=== PATIENT | male | born 1965 | race African-American/Black ===

== ENCOUNTER 2019-04-24 08:10 | Inpatient (IN) | payer OTHER ==
[2019-04-24 08:40] VITALS: BMI 20.7
--- NOTE | 2019-04-24 09:24 | HP ---
"CIWA Score Nausea/Vomitin-Mild Nausea/No Vomiting Muscle Tremors: 3 Anxiety: 4-Mod. Anxious/Guarded Agitation: 1-Slight > Activity Paroxysmal Sweats: No Perspiration Orientation: 1-Uncertain about Date Tacttile Disturbances: 0-None Auditory Disturbances: 1-Very Mild Visual Disturbances: 1-Very Mild Sensitivity Headache: 2-Mild CIWA-Ar Total Score: 14 - Admission Criteria OASAS Guidelines: Admission for Medically Managed Detox: Requires at least one of the followin. CIWA greater than 12 2. Seizures within the past 24 hours 3. Delirium tremens within the past 24 hours 4. Hallucinations within the past 24 hours 5. Acute intervention needed for co occurring medical disorder 6. Acute intervention needed for co occurring psychiatric disorder 7. Severe withdrawal that cannot be handled at a lower level of care (continued vomiting, continued diarrhea, abnormal vital signs) requiring intravenous medication and/or fluids 8. Patient presents the following: CIWA greater than 12 Admission Criteria Met: Admission criteria met Admitting History and Physical - Admission History Source: Patient Limitations to Obtaining History: No Limitations - Past Medical History Psych: Yes: Addictions - Smoking History Smoking history: Current every day smoker - Alcohol/Substance Use Hx Alcohol Use: Yes History of Substance Use: reports: Cocaine - Social History Usual Living Arrangement: Yes: Alone ADL: Support Services Admission ROS S - HPI Chief Complaint: I'm at my end, I need help, I can't go on like this Allergies/Adverse Reactions: Allergies Allergy/AdvReac Type Severity Reaction Status Date / Time No Known Allergies Allergy Verified 04/24/19 08:30 History of Present Illness: 53 yo gentleman here for detox from alcohol - also using crack. Patient denies seizures but has had black outs. No recent emergency room visit. Gets HIV care at [facility]. First time here but has been in detox elsewhere several years ago. Patient is on disability (HIV) and lives in [place] - has been homeless for eight years due to his alcohol and drug use. Denies psychiatric problems. States he got out of long-term three months ago - was incarcerated for one year ([facility]). Limping, uses cane but difficulty walking - states has avascular necrosis and needs hip replacement. Patient states he uses [facility] [phone] (not in [email or web address] dictionary) - however when I called they said he had not been there for a year. I also called [facility] pharmacy [phone] - they states he had not picked up his medication since May 2017. EKG with possible ischemia - patient very cold but no c/o chest pain [facility] Search Terms: isaak wahl, 1965 Search Date: 04/24/2019 09:35:37 AM The Drug Utilization Report below displays all of the controlled substance prescriptions, if any, that your patient has filled in the last twelve months. The information displayed on this report is compiled from pharmacy submissions to the Department, and accurately reflects the information as submitted by the pharmacies. This report was requested by: Rozina Wesley | Reference #: [id number] There are no results for the search terms that you entered. Exam Limitations: No Limitations - Ebola screening Have you traveled outside of the country in the last 21 days: No Have you had contact with anyone from an Ebola affected area: No Have you been sick,other than usual withdrawal symptoms: No Do you have a fever: No - Review of Systems Constitutional: Chills, Loss of Appetite, Malaise, Changes in sleep, Weakness, Unintentional Wgt. Loss EENT: reports: No Symptoms Reported Respiratory: reports: No Symptoms reported Cardiac: reports: No Symptoms Reported GI: reports: Nausea, Poor Appetite, Poor Fluid Intake, Indigestion, Abdominal cramping : reports: Frequency Musculoskeletal: reports: Back Pain, Joint Pain (left hip), Muscle Pain Integumentary: reports: Dryness Neuro: reports: Headache, Tremors Endocrine: reports: No Symptoms Reported Hematology: reports: No Symptoms Reported Psychiatric: reports: Judgement Intact, Mood/Affect Appropiate, Orientated x3, Anxious Other Systems: Reviewed and Negative Patient History - Patient Medical History Hx Anemia: No Hx Asthma: No Hx Chronic Obstructive Pulmonary Disease (COPD): No Hx Cancer: No Hx Cardiac Disorders: No Hx Congestive Heart Failure: No Hx Hypertension: No Hx Hypercholesterolemia: No Hx Pacemaker: No HX Cerebrovascular Accident: No Hx Seizures: No Hx Diabetes: No Hx Gastrointestinal Disorders: No Hx Liver Disease: No Hx Genitourinary Disorders: Yes (BPH ) Hx Sexually Transmitted Disorders: No Hx Renal Disease (ESRD): No Hx Thyroid Disease: No Hx Human Immunodeficiency Virus (HIV): Yes (CD4 <200, diagnosed 1994, takes meds ) Hx Hepatitis C: No Hx Depression: No Hx Suicide Attempt: No Hx Bipolar Disorder: No Hx Schizophrenia: No Other Medical History: avascular necrosis left hip; degenerative disc disease - back pain - Patient Surgical History Past Surgical History: No - PPD History Previous Implant?: Yes Documented Results: Negative w/o proof Implanted On Prior R Admission?: No PPD to be Administered?: Yes - Reproductive History Patient is a Female of Child Bearing Age (11 -55 yrs old): No (male) - Smoking Cessation Smoking history: Current every day smoker Have you smoked in the past 12 months: Yes Hx Chewing Tobacco Use: No Initiated information on smoking cessation: Yes 'Breaking Loose' booklet given: 04/24/19 (give on floor) - Substance & Tx. History Hx Alcohol Use: Yes Hx Substance Use: Yes Substance Use Type: Alcohol, Cocaine Hx Substance Use Treatment: Yes (detox) - Substances abused Alcohol Substance route: Oral Frequency: Daily Amount used: 2 pints of vodka Age of first use: 15 Date of last use: 04/23/19 Cocaine Substance route: Smoking Frequency: Daily Amount used: $200-300$ Age of first use: 15 Date of last use: 04/24/19 Admission Physical Exam [facility] - Vital Signs Vital Signs: Vital Signs - 24 hr 04/24/19 08:37 Temperature 98.2 F Pulse Rate 60 Respiratory 16 Rate Blood Pressure 119/66 - Physical General Appearance: Yes: Nourished, Appropriately Dressed, Moderate Distress, Thin, Tremorous, Anxious HEENTM: Yes: EOMI, Hearing grossly Normal, Normocephalic, Normal Voice, Pharynx Normal Respiratory: Yes: Normal Breath Sounds, No Respiratory Distress Neck: Yes: No masses,lesions,Nodules Breast: Yes: Breast Exam Deferred Cardiology: Yes: Regular Rhythm, Regular Rate Abdominal: Yes: Flat, Soft Genitourinary: Yes: Frequency, Nocturia Back: Yes: Decreased Range of Motion, Other (mild kyphosis) Musculoskeletal: Yes: Back pain, Joint Stiffness, Other Extremities: Yes: Tremors, Other (limping) Neurological: Yes: Fully Oriented, Alert, Normal Mood/Affect, Normal Response Integumentary: Yes: Normal Color, Dry, Warm Lymphatic: Yes: Within Normal Limits - Diagnostic (1) Alcohol dependence with withdrawal, uncomplicated Current Visit: Yes Status: Chronic (2) Cocaine dependence Current Visit: Yes Status: Chronic Qualifiers: Substance use status: uncomplicated Qualified Code(s): F14.20 - Cocaine dependence, uncomplicated (3) Avascular necrosis of bone of left hip Current Visit: Yes Status: Chronic (4) Back pain Current Visit: Yes Status: Chronic Qualifiers: Back pain location: low back pain Chronicity: chronic Back pain laterality: bilateral Sciatica presence: without sciatica Qualified Code(s) : M54.5 - Low back pain; G89.29 - Other chronic pain (5) Nicotine dependence Current Visit: Yes Status: Chronic Qualifiers: Nicotine product type: cigarettes Substance use status: uncomplicated Qualified Code(s): F17.210 - Nicotine dependence, cigarettes, uncomplicated (6) AIDS (acquired immunodeficiency syndrome), CD4 <=200 Current Visit: Yes Status: Chronic Cleared for Admission S - Detox or Rehab [facility] Level of Care: Medically Managed Detox Regimen/Protocol: Librium Breathalyzer - Breathalyzer Breathalyzer: 0 Urine Drug Screen - Test Device Lot number: [id number] Expiration date: 02/08/21 - Control Is test valid?: Yes - Results Drug screen NEGATIVE: No Urine drug screen results: CLAUDIA-Cocaine Inpatient Rehab Admission - Rehab Decision to Admit Inpatient rehab admission?: No"
[2019-04-24] MEDS ORDERED: MAG HYDROX/AL HYDROX/SIMETH 30 ML UNIT-DOSE CUP PO PRN (09:46)
[2019-04-24] MEDS ORDERED: hydrOXYzine PAMOATE 25 MG CAPSULE (FP) PO PRN (09:46)
[2019-04-24] MEDS ORDERED: MAGNESIUM CITRATE 300 ML BOTTLE PO PRN (09:46)
[2019-04-24] MEDS ORDERED: MENTHOL/PHENOL 1 EACH UD MM PRN (09:46)
[2019-04-24] MEDS ORDERED: chlordiazePOXIDE HCL 25 MG CAPSULE PO PRN (09:46)
[2019-04-24] MEDS ORDERED: BISMUTH SUBSALICYLATE 524 MG/30 ML UD PO PRN (09:46)
[2019-04-24] MEDS ORDERED: NICOTINE POLACRILEX 4 MG GUM BUC PRN (09:46)
[2019-04-24] MEDS ORDERED: MAGNESIUM HYDROX 2400MG/30ML ORAL SUSPENSION 30 ML CUP PO PRN (09:46)
[2019-04-24] MEDS ORDERED: IBUPROFEN 400 MG TABLET (FP) PO PRN (09:46)
[2019-04-24] MEDS ORDERED: MELATONIN 5 MG TABLETS PO PRN (09:46)
[2019-04-24] MEDS ORDERED: ACETAMINOPHEN 325 MG TABLET (FP) PO PRN ×2 (09:46)
[2019-04-24] MEDS ORDERED: chlordiazePOXIDE HCL 25 MG CAPSULE PO ONE (10:45)
[2019-04-24] MEDS: PRENATAL VITAMINS W/ FOLIC ACID TABLET (FP) PO SCH (11:19)
[2019-04-24] MEDS: chlordiazePOXIDE HCL 25 MG CAPSULE PO SCH ×3 (11:19→22:46)
[2019-04-24] MEDS: SULFAMETHOXAZOLE/TRIMETHOPRIM 800MG/160MG D.S. TABLET PO SCH (11:19)
[2019-04-24 11:37] LABS: HEMATOCRIT 39.6 % (35.4-49); HEMOGLOBIN 13.3 GM/dL (11.7-16.9); MCH 33.6 pg (25.7-33.7); MCHC 33.6 g/dl (32.0-35.9); MEAN PLT VOLUME 9.5 fl (7.5-11.1); PLATELET COUNT 182 K/MM3 (134-434); RBC 3.96 M/mm3 (4.00-5.60); RDW 12.9 % (11.9-15.9); WHITE BLOOD COUNT 2.6 K/mm3 (4.0-10.0)
[2019-04-24 11:49] LABS: ALBUMIN 3.6 g/dl (3.4-5.0); BILIRUBIN,TOTAL 0.2 mg/dL (0.2-1); BLOOD UREA NITROGEN 10.2 mg/dL (7-18); CALCIUM 8.9 mg/dL (8.5-10.1); CREATININE 1.1 mg/dL (0.55-1.3); POTASSIUM 3.9 mmol/L (3.5-5.1)
--- NOTE | 2019-04-24 14:36 | EKG ---
Test Reason : Blood Pressure : / mmHG Vent. Rate : 058 BPM Atrial Rate : 058 BPM P-R Int : 180 ms QRS Dur : 076 ms QT Int : 426 ms P-R-T Axes : 052 000 152 degrees QTc Int : 418 ms SINUS BRADYCARDIA POSSIBLE LEFT ATRIAL ENLARGEMENT LEFT VENTRICULAR HYPERTROPHY T WAVE ABNORMALITY, CONSIDER LATERAL ISCHEMIA ABNORMAL ECG Confirmed by MD KIT, ARIEL ([id number]) on 04/24/2019 2:36:10 PM Referred By: Confirmed By:ARIEL PANTOJA MD
[2019-04-24] MEDS ORDERED: traZODone HCL 50 MG TABLET (FP) PO PRN (22:00)
[2019-04-24] MEDS: THIAMINE HCL 100 MG TABLET (FP) PO SCH (22:46)
[2019-04-24] MEDS: METHOCARBAMOL 500 MG TABLET PO PRN (23:12)
[2019-04-25] MEDS: chlordiazePOXIDE HCL 25 MG CAPSULE PO SCH ×4 (05:47→23:51)
[2019-04-25] MEDS: IBUPROFEN 600 MG TABLET (FP) PO PRN ×2 (05:54→14:54)
[2019-04-25] MEDS: PRENATAL VITAMINS W/ FOLIC ACID TABLET (FP) PO SCH (10:25)
[2019-04-25] MEDS: SULFAMETHOXAZOLE/TRIMETHOPRIM 800MG/160MG D.S. TABLET PO SCH (10:25)
--- NOTE | 2019-04-25 12:24 | PN ---
[facility] CIWA - CIWA Score Nausea/Vomitin-Mild Nausea/No Vomiting Muscle Tremors: 3 Anxiety: 3 Agitation: 2 Paroxysmal Sweats: 2 Orientation: 0-Oriented Tacttile Disturbances: 0-None Auditory Disturbances: 0-None Visual Disturbances: 0-None Headache: 0-None Present CIWA-Ar Total Score: 11 [facility] Progress Note (SOAP) Subjective: Sweating, nausea. Patient stated he has full blown AIDS and was taking descovy, prezista and tivicay [place] out of state and hasn't taken for about a year. Patient instructed to follow up with his PCP/ID Specialist for further evalution and to restart treatment. He's on Bactrim DS for reportedly low CD 4 count. Patient agreed to HIV testing. Objective: 04/25/19 12:24 Last Vital Signs Temp Pulse Resp BP Pulse Ox 97.9 F 58 L 18 122/76 04/25/19 09:05 04/25/19 09:05 04/25/19 09:05 04/25/19 09:05 Laboratory Tests 04/24/19 04/24/19 04/24/19 10:10 10:10 10:10 WBC 2.6 L RBC 3.96 L Hgb 13.3 Hct 39.6 MCV 100.0 H MCH 33.6 MCHC 33.6 RDW 12.9 Plt Count 182 MPV 9.5 Sickle Cell Screen Sodium 141 Potassium 3.9 Chloride 106 Carbon Dioxide 31 Anion Gap 4 L BUN 10.2 Creatinine 1.1 Est GFR (CKD-EPI)AfAm 88.36 Est GFR (CKD-EPI)NonAf 76.24 Random Glucose 88 Calcium 8.9 Total Bilirubin 0.2 AST 27 ALT 28 Alkaline Phosphatase 66 Total Protein 7.0 Albumin 3.6 RPR Titer Nonreactive 04/24/19 10:10 WBC RBC Hgb Hct MCV MCH MCHC RDW Plt Count MPV Sickle Cell Screen Negative Sodium Potassium Chloride Carbon Dioxide Anion Gap BUN Creatinine Est GFR (CKD-EPI)AfAm Est GFR (CKD-EPI)NonAf Random Glucose Calcium Total Bilirubin AST ALT Alkaline Phosphatase Total Protein Albumin RPR Titer Labs reviewed Assessment: 04/25/19 12:24 Withdrawal sxs Has HIV, not on treatment Plan: Continue detox Encouraged PO water intake AIDS: continue Bactrim DS daily, send HIV 4th generation testing, send CD4 count and viral load, send hepatitis A, B, C panel
[2019-04-25] MEDS: METHOCARBAMOL 500 MG TABLET PO PRN (14:54)
[2019-04-25] MEDS: THIAMINE HCL 100 MG TABLET (FP) PO SCH (23:51)
[2019-04-26] MEDS: chlordiazePOXIDE HCL 25 MG CAPSULE PO SCH ×4 (06:24→22:30)
[2019-04-26] MEDS: IBUPROFEN 600 MG TABLET (FP) PO PRN ×2 (06:26→17:16)
[2019-04-26] MEDS: METHOCARBAMOL 500 MG TABLET PO PRN ×2 (06:27→17:16)
--- NOTE | 2019-04-26 10:25 | PN ---
S CIWA - CIWA Score Nausea/Vomitin-Mild Nausea/No Vomiting Muscle Tremors: 2 Anxiety: 2 Agitation: 2 Paroxysmal Sweats: No Perspiration Orientation: 0-Oriented Tacttile Disturbances: 1-Very Mild Itch/Numbness Auditory Disturbances: 0-None Visual Disturbances: 0-None Headache: 1-Very Mild CIWA-Ar Total Score: 9 [facility] Progress Note (SOAP) Subjective: alert,irritable,anxious,interrupted sleep,pain in the body Objective: 04/26/19 10:23 Vital Signs Temperature 98.1 F 04/26/19 08:56 Pulse Rate 61 04/26/19 08:56 Respiratory Rate 16 04/26/19 08:56 Blood Pressure 117/67 04/26/19 08:56 O2 Sat by Pulse Oximetry (%) 04/26/19 10:23 Laboratory Last Values WBC 2.6 K/mm3 (4.0-10.0) L 04/24/19 10:10 RBC 3.96 M/mm3 (4.00-5.60) L 04/24/19 10:10 Hgb 13.3 GM/dL (11.7-16.9) 04/24/19 10:10 Hct 39.6 % (35.4-49) 04/24/19 10:10 MCV 100.0 fl (80-96) H 04/24/19 10:10 MCH 33.6 pg (25.7-33.7) 04/24/19 10:10 MCHC 33.6 g/dl (32.0-35.9) 04/24/19 10:10 RDW 12.9 % (11.9-15.9) 04/24/19 10:10 Plt Count 182 K/MM3 (134-434) 04/24/19 10:10 MPV 9.5 fl (7.5-11.1) 04/24/19 10:10 Sickle Cell Screen Negative (NEGATIVE) 04/24/19 10:10 Sodium 141 mmol/L (136-145) 04/24/19 10:10 Potassium 3.9 mmol/L (3.5-5.1) 04/24/19 10:10 Chloride 106 mmol/L (98-107) 04/24/19 10:10 Carbon Dioxide 31 mmol/L (21-32) 04/24/19 10:10 Anion Gap 4 MMOL/L (8-16) L 04/24/19 10:10 BUN 10.2 mg/dL (7-18) 04/24/19 10:10 Creatinine 1.1 mg/dL (0.55-1.3) 04/24/19 10:10 Est GFR (CKD-EPI)AfAm 88.36 04/24/19 10:10 Est GFR (CKD-EPI)NonAf 76.24 04/24/19 10:10 Random Glucose 88 mg/dL (74-106) 04/24/19 10:10 Calcium 8.9 mg/dL (8.5-10.1) 04/24/19 10:10 Total Bilirubin 0.2 mg/dL (0.2-1) 04/24/19 10:10 AST 27 U/L (15-37) 04/24/19 10:10 ALT 28 U/L (13-61) 04/24/19 10:10 Alkaline Phosphatase 66 U/L (45-117) 04/24/19 10:10 Total Protein 7.0 g/dl (6.4-8.2) 04/24/19 10:10 Albumin 3.6 g/dl (3.4-5.0) 04/24/19 10:10 RPR Titer Nonreactive (NONREACTIVE) 04/24/19 10:10 04/26/19 10:23 leukopenia probably due to aids Assessment: 04/26/19 10:24 withdrawal symptom Plan: contiune detox librium regimen,ensure plus `120 mls po bid
[2019-04-26] MEDS: PRENATAL VITAMINS W/ FOLIC ACID TABLET (FP) PO SCH (10:46)
[2019-04-26] MEDS: SULFAMETHOXAZOLE/TRIMETHOPRIM 800MG/160MG D.S. TABLET PO SCH (10:47)
--- NOTE | 2019-04-26 13:13 | PN ---
[facility] Progress Note Note: unable to verify the medication form pharmacy that patient's mention
[2019-04-26] MEDS: THIAMINE HCL 100 MG TABLET (FP) PO SCH (22:30)
[2019-04-27] MEDS ORDERED: chlordiazePOXIDE HCL 10 MG CAPSULE PO PRN
[2019-04-27] MEDS: chlordiazePOXIDE HCL 10 MG CAPSULE PO SCH ×4 (05:35→23:39)
[2019-04-27] MEDS: METHOCARBAMOL 500 MG TABLET PO PRN ×2 (05:38→20:49)
[2019-04-27] MEDS: IBUPROFEN 600 MG TABLET (FP) PO PRN ×2 (05:38→20:49)
[2019-04-27] MEDS: PRENATAL VITAMINS W/ FOLIC ACID TABLET (FP) PO SCH (10:18)
[2019-04-27] MEDS: SULFAMETHOXAZOLE/TRIMETHOPRIM 800MG/160MG D.S. TABLET PO SCH (10:18)
--- NOTE | 2019-04-27 10:23 | PN ---
S CIWA - CIWA Score Nausea/Vomitin-Mild Nausea/No Vomiting Muscle Tremors: 1-None Visible, but [place] Anxiety: 1-Mildly Anxious Agitation: 1-Slight > Activity Paroxysmal Sweats: No Perspiration Orientation: 0-Oriented Tacttile Disturbances: 1-Very Mild Itch/Numbness Auditory Disturbances: 0-None Visual Disturbances: 0-None Headache: 1-Very Mild CIWA-Ar Total Score: 6 [facility] Progress Note (SOAP) Subjective: alert,irritable,anxious,interrupted sleep unable to identify and locate patient pharmacy,non compliance with his medication Objective: 04/27/19 10:22 Vital Signs Temperature 98.6 F 04/27/19 08:35 Pulse Rate 69 04/27/19 08:35 Respiratory Rate 18 04/27/19 08:35 Blood Pressure 146/73 04/27/19 08:35 O2 Sat by Pulse Oximetry (%) Assessment: 04/27/19 10:23 withdrawal symptom Plan: continue detox librium regimen
[2019-04-27] MEDS: THIAMINE HCL 100 MG TABLET (FP) PO SCH (23:39)
[2019-04-28] MEDS ORDERED: chlordiazePOXIDE HCL 10 MG CAPSULE PO SCH (05:00)
[2019-04-28 06:50] VITALS: BP 112/69; PULSE 66; TEMP 98.1
--- NOTE | 2019-04-28 08:51 | PN ---
[facility] CIWA - CIWA Score Nausea/Vomitin-No Nausea/No Vomiting Muscle Tremors: 1-None Visible, but [place] Anxiety: 1-Mildly Anxious Agitation: 1-Slight > Activity Paroxysmal Sweats: No Perspiration Orientation: 0-Oriented Tacttile Disturbances: 0-None Auditory Disturbances: 0-None Visual Disturbances: 0-None Headache: 0-None Present CIWA-Ar Total Score: 3 [facility] Progress Note (SOAP) Subjective: alert,no complaint,patient is non compliance with medication,last medication taken in 02/18/19 Objective: 04/28/19 08:37 Vital Signs Temperature 98.1 F 04/28/19 06:49 Pulse Rate 66 04/28/19 06:49 Respiratory Rate 16 04/28/19 06:49 Blood Pressure 112/69 04/28/19 06:49 O2 Sat by Pulse Oximetry (%) Assessment: 04/28/19 08:38 no withdrawal symptom Plan: patient is stable to be discharged,patient non compliance with medication,need to be evaluated by medical provider,patient is abusive and disrespectful to the staff,would like to leave,seen by senior clinical care explosive operator supervisor Herlinda, patient did not want to be seen by Trish the counselor,insisted to leave , advise to see his own medical provider for evaluation,work up for his hiv medication,patient understood,left the unit in stable condition accompanying by security
[2019-04-28] MEDS: SULFAMETHOXAZOLE/TRIMETHOPRIM 800MG/160MG D.S. TABLET PO SCH (11:00)
[2019-04-28] MEDS: PRENATAL VITAMINS W/ FOLIC ACID TABLET (FP) PO SCH (11:01)
--- NOTE | 2019-04-28 11:02 | DS ---
[facility] Detox Discharge Summary Admission Date: 04/24/19 Discharge Date: 04/28/19 - History Present History: Alcohol Dependence, Cocaine Dependence Additional Comments: alert,oriented x 3 ambulation on the unit lung clear no abdominal pain non compliance with hiv medication last taking in 03/04 did not want to wait to see the counselor again stated he need to leave now Karie Andersen nursing radiology supervisor informed patient understood that he need to see his medical provider who has been taking care of him for evaluation,before resuming hi medication, patient insist on leaving,stable for discharge,escort off the unit by security time spending for discharge 30 mins Pertinent Past History: nicotine dependence avascular necrosis left hip aids - Physical Exam Results Vital Signs: Vital Signs Temperature 98.1 F 04/28/19 06:49 Pulse Rate 66 04/28/19 06:49 Respiratory Rate 16 04/28/19 06:49 Blood Pressure 112/69 04/28/19 06:49 O2 Sat by Pulse Oximetry (%) Pertinent Admission Physical Exam Findings: withdrawal signs and symptom Vital Signs Temperature 98.1 F 04/28/19 06:49 Pulse Rate 66 04/28/19 06:49 Respiratory Rate 16 04/28/19 06:49 Blood Pressure 112/69 04/28/19 06:49 O2 Sat by Pulse Oximetry (%) Laboratory Last Values WBC 2.6 K/mm3 (4.0-10.0) L 04/24/19 10:10 RBC 3.96 M/mm3 (4.00-5.60) L 04/24/19 10:10 Hgb 13.3 GM/dL (11.7-16.9) 04/24/19 10:10 Hct 39.6 % (35.4-49) 04/24/19 10:10 MCV 100.0 fl (80-96) H 04/24/19 10:10 MCH 33.6 pg (25.7-33.7) 04/24/19 10:10 MCHC 33.6 g/dl (32.0-35.9) 04/24/19 10:10 RDW 12.9 % (11.9-15.9) 04/24/19 10:10 Plt Count 182 K/MM3 (134-434) 04/24/19 10:10 MPV 9.5 fl (7.5-11.1) 04/24/19 10:10 Sickle Cell Screen Negative (NEGATIVE) 04/24/19 10:10 Sodium 141 mmol/L (136-145) 04/24/19 10:10 Potassium 3.9 mmol/L (3.5-5.1) 04/24/19 10:10 Chloride 106 mmol/L (98-107) 04/24/19 10:10 Carbon Dioxide 31 mmol/L (21-32) 04/24/19 10:10 Anion Gap 4 MMOL/L (8-16) L 04/24/19 10:10 BUN 10.2 mg/dL (7-18) 04/24/19 10:10 Creatinine 1.1 mg/dL (0.55-1.3) 04/24/19 10:10 Est GFR (CKD-EPI)AfAm 88.36 04/24/19 10:10 Est GFR (CKD-EPI)NonAf 76.24 04/24/19 10:10 Random Glucose 88 mg/dL (74-106) 04/24/19 10:10 Calcium 8.9 mg/dL (8.5-10.1) 04/24/19 10:10 Total Bilirubin 0.2 mg/dL (0.2-1) 04/24/19 10:10 AST 27 U/L (15-37) 04/24/19 10:10 ALT 28 U/L (13-61) 04/24/19 10:10 Alkaline Phosphatase 66 U/L (45-117) 04/24/19 10:10 Total Protein 7.0 g/dl (6.4-8.2) 04/24/19 10:10 Albumin 3.6 g/dl (3.4-5.0) 04/24/19 10:10 RPR Titer Nonreactive (NONREACTIVE) 04/24/19 10:10 - Treatment Hospital Course: Detox Protocol Followed, Detoxed Safely, Responded well, Discharged Condition Good Patient has Accepted a Rehab Referral to: declined - Medication Discharge Medications: Ambulatory Orders Descovy 200-25 mg Tablet (Nf) 200 mg PO DAILY 04/24/19 Gabapentin 800 mg PO TID 04/24/19 Sulfamethoxazole/Trimethoprim [Bactrim Ds -] 1 tab PO DAILY 04/24/19 Tramadol HCl [Ultram] 50 mg PO BID 04/24/19 - Diagnosis (1) Alcohol dependence with withdrawal, uncomplicated Current Visit: Yes Status: Chronic (2) Cocaine dependence Current Visit: Yes Status: Chronic Qualifiers: Substance use status: uncomplicated Qualified Code(s): F14.20 - Cocaine dependence, uncomplicated (3) Nicotine dependence Current Visit: Yes Status: Chronic Qualifiers: Nicotine product type: cigarettes Substance use status: uncomplicated Qualified Code(s): F17.210 - Nicotine dependence, cigarettes, uncomplicated (4) AIDS (acquired immunodeficiency syndrome), CD4 <=200 Current Visit: Yes Status: Chronic - AMA Did Patient Leave Against Medical Advice: No
[2019-04-29] MEDS ORDERED: chlordiazePOXIDE HCL 10 MG CAPSULE PO ONE (05:00)
== END 2019-04-28 10:40 | disposition home or self-care (01) | DRG 774 ==
LOC: YASAS 08:10 → Y6N 09:50
PROVIDERS: ADMIT Allergy & Immunology; ATTEND Allergy & Immunology
PROC: HZ2ZZZZ Detoxification Services for Substance Abuse Treatment (ICD-10-PCS; principal; 2019-04-24)
DX: F10.230 Alcohol dependence with withdrawal, uncomplicated (principal); F14.20 Cocaine dependence, uncomplicated; F17.210 Nicotine dependence, cigarettes, uncomplicated; B20 Human immunodeficiency virus [HIV] disease; D72.819 Decreased white blood cell count, unspecified; N40.0 Benign prostatic hyperplasia without lower urinary tract symptoms; R25.1 Tremor, unspecified; M54.5 Low back pain; G89.29 Other chronic pain; M87.9 Osteonecrosis, unspecified
CPT/HCPCS: 36415; 80053; 85027; 85660; 86593; 93005; 93010

== ENCOUNTER 2022-12-21 11:28 | Inpatient (IN) | payer OTHER ==
[2022-12-21 12:24] VITALS: BMI 17.9
[2022-12-21] MEDS ORDERED: POLYETHYLENE GLYCOL (HEALTHYLAX) 3350 17 GM PACKET PO PRN (14:01)
[2022-12-21] MEDS ORDERED: BENZOCAINE/MENTHOL (CHLORASEPTIC ) LOZENGE MM PRN (14:01)
[2022-12-21] MEDS ORDERED: MAGNESIUM HYDROX 2400MG/30ML ORAL SUSPENSION 30 ML CUP PO PRN (14:01)
[2022-12-21] MEDS ORDERED: BISMUTH SUBSALICYLATE 524 MG/30 ML PO PRN (14:01)
[2022-12-21] MEDS ORDERED: hydrOXYzine PAMOATE 25 MG CAPSULE (FP) PO PRN (14:01)
[2022-12-21] MEDS ORDERED: ACETAMINOPHEN 325 MG TABLET (FP) PO PRN ×2 (14:01)
[2022-12-21] MEDS ORDERED: METHOCARBAMOL 500 MG TABLET PO PRN (14:01)
[2022-12-21] MEDS ORDERED: NALOXONE HCL 0.4 MG/ML VIAL IM PRN (14:01)
[2022-12-21] MEDS ORDERED: ONDANSETRON *ODT* 4 MG TABLET SL PRN (14:01)
[2022-12-21] MEDS ORDERED: BENZONATATE 200 MG CAPSULE PO PRN (14:01)
[2022-12-21] MEDS ORDERED: guaiFENesin 600 MG TABLET.ER (FP) PO PRN (14:01)
[2022-12-21] MEDS ORDERED: DICYCLOMINE HCL 10 MG CAPSULE PO PRN (14:01)
[2022-12-21] MEDS ORDERED: LIDOCAINE 5% TOPICAL PATCH TP PRN (14:01)
[2022-12-21] MEDS ORDERED: NALOXONE HCL (KLOXXADO) 8 MG SPRAY NS PRN (14:01)
[2022-12-21] MEDS ORDERED: NICOTINE 21 MG/24 HOURS TOPICAL PATCH TD PRN (14:01)
[2022-12-21] MEDS ORDERED: NICOTINE POLACRILEX 4 MG GUM BUC PRN (14:01)
[2022-12-21] MEDS ORDERED: AMMONIUM LACTATE 12% LOTION 225 GM BOTTLE TP PRN (14:01)
[2022-12-21] MEDS ORDERED: COLLOIDAL OATMEAL 1 BAR EACH TP PRN (14:01)
[2022-12-21] MEDS ORDERED: IBUPROFEN 400 MG TABLET (FP) PO PRN (14:01)
[2022-12-21] MEDS ORDERED: MAG HYDROX/AL HYDROX/SIMETH 30 ML UNIT-DOSE CUP PO PRN (14:01)
[2022-12-21] MEDS ORDERED: LOPERAMIDE HCL 2 MG CAPSULE PO PRN (14:01)
[2022-12-21] MEDS ORDERED: KETOROLAC TROMETHAMINE 30 MG/1 ML VIAL IM ONE (14:06)
[2022-12-21] MEDS ORDERED: CLOTRIMAZOLE 10 MG TROCHE PO PRN (14:08)
[2022-12-21] MEDS: SULFAMETHOXAZOLE/TRIMETHOPRIM 800MG/160MG D.S. TABLET PO SCH (15:00)
[2022-12-21] MEDS: DARUNAVIR/COB/EMTRI/TENOF ALAF 1 EACH TABLET PO SCH (17:58)
[2022-12-21] MEDS ORDERED: MELATONIN 5 MG TABLETS PO SCH (22:00)
[2022-12-21] MEDS ORDERED: THIAMINE HCL 100 MG TABLET (FP) PO SCH (22:00)
[2022-12-21] MEDS ORDERED: LIDOCAINE PATCH REMOVAL MC SCH (22:00)
[2022-12-21 22:29] VITALS: RESP 16
[2022-12-21] MEDS: IBUPROFEN 600 MG TABLET (FP) PO PRN (22:32)
[2022-12-22] MEDS: DARUNAVIR/COB/EMTRI/TENOF ALAF 1 EACH TABLET PO SCH (07:16)
[2022-12-22] MEDS: IBUPROFEN 600 MG TABLET (FP) PO PRN (09:42)
[2022-12-22] MEDS: SULFAMETHOXAZOLE/TRIMETHOPRIM 800MG/160MG D.S. TABLET PO SCH (09:42)
[2022-12-22 09:47] VITALS: BP 132/77; PULSE 78; TEMP 96.8
[2022-12-22] MEDS ORDERED: PRENATAL VITAMINS W/ FOLIC ACID TABLET (FP) PO SCH (10:00)
[2022-12-22 10:30] LABS: HEMATOCRIT 36.1 % (35.4-49); HEMOGLOBIN 12.1 GM/dL (11.7-16.9); MCH 32.3 pg (25.7-33.7); MCHC 33.6 g/dl (32.0-35.9); MEAN PLT VOLUME 8.7 fl (7.5-11.1); PLATELET COUNT 200 10^3/uL (134-434); RBC 3.76 M/mm3 (4.00-5.60); RDW 14.2 % (11.9-15.9); WHITE BLOOD COUNT 3.9 K/mm3 (4.0-10.0)
[2022-12-22 11:16] LABS: POTASSIUM 4.4 mmol/L (3.5-5.1)
[2022-12-22 11:18] LABS: ALBUMIN 2.7 g/dl (3.4-5.0)
[2022-12-22 11:19] LABS: BLOOD UREA NITROGEN 18.7 mg/dL (7-18)
[2022-12-22 11:23] LABS: TOT PROT 6.4 g/dl (6.4-8.2)
[2022-12-22 11:24] LABS: BILIRUBIN,TOTAL 0.8 mg/dL (0.2-1)
== END 2022-12-22 10:00 | disposition left against medical advice (07) | DRG 770 ==
LOC: YASAS 11:28 → Y6N 14:06
PROVIDERS: ADMIT Allergy & Immunology; ATTEND Surgery
PROC: HZ2ZZZZ Detoxification Services for Substance Abuse Treatment (ICD-10-PCS; principal; 2022-12-21)
DX: F10.230 Alcohol dependence with withdrawal, uncomplicated (principal); F14.20 Cocaine dependence, uncomplicated; F17.210 Nicotine dependence, cigarettes, uncomplicated; B20 Human immunodeficiency virus [HIV] disease; R63.4 Abnormal weight loss; Z68.1 Body mass index [BMI] 19.9 or less, adult
CPT/HCPCS: 36415; 80053; 82140; 85027; 86780; 87635; 87811

== ENCOUNTER 2024-05-10 09:10 | Inpatient (IN) | payer OTHER ==
[2024-05-10 09:50] VITALS: BMI 19.3
[2024-05-10] MEDS ORDERED: DICYCLOMINE HCL 10 MG CAPSULE PO PRN (10:46)
[2024-05-10] MEDS ORDERED: BISMUTH SUBSALICYLATE 524 MG/30 ML PO PRN (10:46)
[2024-05-10] MEDS ORDERED: BENZOCAINE/MENTHOL (CHLORASEPTIC ) LOZENGE MM PRN (10:46)
[2024-05-10] MEDS ORDERED: LORazepam 1 MG TABLET PO PRN (10:46)
[2024-05-10] MEDS ORDERED: ONDANSETRON *ODT* 4 MG TABLET SL PRN (10:46)
[2024-05-10] MEDS ORDERED: METHOCARBAMOL 500 MG TABLET PO PRN (10:46)
[2024-05-10] MEDS ORDERED: ACETAMINOPHEN 325 MG TABLET (FP) PO PRN (10:46)
[2024-05-10] MEDS ORDERED: NICOTINE POLACRILEX 4 MG GUM BUC PRN (10:46)
[2024-05-10] MEDS ORDERED: BENZONATATE 200 MG CAPSULE PO PRN (10:46)
[2024-05-10] MEDS ORDERED: LOPERAMIDE HCL 2 MG CAPSULE PO PRN (10:46)
[2024-05-10] MEDS ORDERED: NALOXONE (NARCAN) HCL 4 MG/0.1 ML SPRAY NS PRN (10:46)
[2024-05-10] MEDS ORDERED: hydrOXYzine PAMOATE 25 MG CAPSULE (FP) PO PRN (10:46)
[2024-05-10] MEDS ORDERED: IBUPROFEN 400 MG TABLET (FP) PO PRN (10:46)
[2024-05-10] MEDS ORDERED: IBUPROFEN 600 MG TABLET (FP) PO PRN (10:46)
[2024-05-10] MEDS ORDERED: MAG HYDROX/AL HYDROX/SIMETH 30 ML UNIT-DOSE CUP PO PRN (10:46)
[2024-05-10] MEDS ORDERED: POLYETHYLENE GLYCOL (HEALTHYLAX) 3350 17 GM PACKET PO PRN (10:46)
[2024-05-10] MEDS ORDERED: guaiFENesin 600 MG TABLET.ER (FP) PO PRN (10:46)
[2024-05-10] MEDS ORDERED: MAGNESIUM HYDROX 2400MG/30ML ORAL SUSPENSION 30 ML CUP PO PRN (10:46)
[2024-05-10] MEDS: LORazepam 2 MG TABLET PO SCH (11:40)
[2024-05-10] MEDS: SULFAMETHOXAZOLE/TRIMETHOPRIM 800MG/160MG D.S. TABLET PO SCH (11:41)
[2024-05-10] MEDS: LIDOCAINE 5% TOPICAL PATCH TP SCH (11:41)
[2024-05-10] MEDS: BICTEGRAV/EMTRICIT/TENOFOV (BIKTARVY) 50-200-25 MG TABLET PO SCH (11:42)
[2024-05-10] MEDS: GABAPENTIN 100 MG CAPSULE PO SCH (14:51)
[2024-05-10] MEDS: NALTREXONE HCL 50 MG TABLET PO ONE (14:51)
[2024-05-10] MEDS: THIAMINE 100 MG TABLET PO SCH (22:45)
[2024-05-10] MEDS: MIRTAZAPINE 15 MG TABLET (FP) PO SCH (22:52)
[2024-05-10] MEDS: LIDOCAINE PATCH REMOVAL MC SCH (22:53)
[2024-05-10] MEDS: MELATONIN 5 MG TABLETS PO SCH (22:54)
[2024-05-11 06:46] VITALS: BP 123/76; PULSE 78; RESP 16; TEMP 97.9
[2024-05-11] MEDS ORDERED: PRENATAL VITAMINS W/ FOLIC ACID TABLET (FP) PO SCH (10:00)
[2024-05-11] MEDS ORDERED: NICOTINE 21 MG/24 HOURS TOPICAL PATCH TD SCH (10:00)
[2024-05-11] MEDS ORDERED: NALTREXONE HCL 50 MG TABLET PO SCH (10:00)
[2024-05-12] MEDS ORDERED: LORazepam 1 MG TABLET PO SCH (05:00)
[2024-05-13] MEDS ORDERED: LORazepam 0.5 MG TABLET PO PRN
[2024-05-13] MEDS ORDERED: LORazepam 0.5 MG TABLET PO SCH (05:00)
[2024-05-14] MEDS ORDERED: LORazepam 0.5 MG TABLET PO ONE (05:00)
== END 2024-05-11 08:24 | disposition left against medical advice (07) | DRG 770 ==
LOC: YASAS 09:10 → Y6N 11:03
PROVIDERS: ADMIT Allergy & Immunology; ATTEND Allergy & Immunology
PROC: HZ2ZZZZ Detoxification Services for Substance Abuse Treatment (ICD-10-PCS; principal; 2024-05-10)
DX: F10.230 Alcohol dependence with withdrawal, uncomplicated (principal); F14.20 Cocaine dependence, uncomplicated; F17.210 Nicotine dependence, cigarettes, uncomplicated; F25.9 Schizoaffective disorder, unspecified; B20 Human immunodeficiency virus [HIV] disease; G99.0 Autonomic neuropathy in diseases classified elsewhere; M54.50 Low back pain, unspecified; G89.29 Other chronic pain; R63.4 Abnormal weight loss; Z68.1 Body mass index [BMI] 19.9 or less, adult; Z87.01 Personal history of pneumonia (recurrent)
CPT/HCPCS: 0241U-QW; 36415; 80305; 80307; 86359; 86360; 93005; 93010

== ENCOUNTER 2024-06-24 12:48 | Inpatient (IN) | payer OTHER ==
[2024-06-24 13:35] VITALS: BMI 20.3
[2024-06-24] MEDS ORDERED: BISMUTH SUBSALICYLATE 524 MG/30 ML PO PRN (13:53)
[2024-06-24] MEDS ORDERED: BENZONATATE 200 MG CAPSULE PO PRN (13:53)
[2024-06-24] MEDS ORDERED: NICOTINE POLACRILEX 2 MG LOZENGE BC PRN (13:53)
[2024-06-24] MEDS ORDERED: IBUPROFEN 400 MG TABLET (FP) PO PRN (13:53)
[2024-06-24] MEDS ORDERED: DICYCLOMINE HCL 10 MG CAPSULE PO PRN (13:53)
[2024-06-24] MEDS ORDERED: BENZOCAINE/MENTHOL (CHLORASEPTIC ) LOZENGE MM PRN (13:53)
[2024-06-24] MEDS ORDERED: LOPERAMIDE HCL 2 MG CAPSULE PO PRN (13:53)
[2024-06-24] MEDS ORDERED: NALOXONE (NARCAN) HCL 4 MG/0.1 ML SPRAY NS PRN (13:53)
[2024-06-24] MEDS ORDERED: LORazepam 1 MG TABLET PO PRN (13:53)
[2024-06-24] MEDS ORDERED: POLYETHYLENE GLYCOL (HEALTHYLAX) 3350 17 GM PACKET PO PRN (13:53)
[2024-06-24] MEDS ORDERED: ACETAMINOPHEN 325 MG TABLET (FP) PO PRN (13:53)
[2024-06-24] MEDS ORDERED: ONDANSETRON *ODT* 4 MG TABLET SL PRN (13:53)
[2024-06-24] MEDS ORDERED: MAGNESIUM HYDROX 2400MG/30ML ORAL SUSPENSION 30 ML CUP PO PRN (13:53)
[2024-06-24] MEDS ORDERED: MAG HYDROX/AL HYDROX/SIMETH 30 ML UNIT-DOSE CUP PO PRN (13:53)
[2024-06-24] MEDS ORDERED: guaiFENesin 600 MG TABLET.ER (FP) PO PRN (13:53)
[2024-06-24] MEDS: SULFAMETHOXAZOLE/TRIMETHOPRIM 800MG/160MG D.S. TABLET PO SCH (15:20)
[2024-06-24] MEDS: LORazepam 2 MG TABLET PO SCH (17:56)
[2024-06-24] MEDS: METHOCARBAMOL 500 MG TABLET PO PRN (17:57)
[2024-06-24] MEDS: BICTEGRAV/EMTRICIT/TENOFOV (BIKTARVY) 50-200-25 MG TABLET PO SCH (17:57)
[2024-06-24] MEDS: NALTREXONE HCL 50 MG TABLET PO ONE (19:07)
[2024-06-24] MEDS: MELATONIN 5 MG TABLETS PO SCH (22:57)
[2024-06-24] MEDS: THIAMINE 100 MG TABLET PO SCH (22:57)
[2024-06-24] MEDS: MIRTAZAPINE 15 MG TABLET (FP) PO SCH (22:59)
[2024-06-25] MEDS: PRENATAL VITAMINS W/ FOLIC ACID TABLET (FP) PO SCH (11:02)
[2024-06-25] MEDS: NALTREXONE HCL 50 MG TABLET PO SCH (11:03)
[2024-06-25 11:20] LABS: HEMATOCRIT 35.7 % (40.1-51.0); HEMOGLOBIN 11.1 g/dL (13.7-17.5); MCHC 31.1 g/dl (32.3-36.5); MEAN CELL VOLUME 94.4 fl (79.0-92.2); PLATELET COUNT 230 x10^3/uL (163-337); RDW 14.7 % (12.2-16.1)
[2024-06-25 11:23] LABS: POTASSIUM 3.5 mmol/L (3.5-5.1)
[2024-06-25 11:29] LABS: CALCIUM 8.8 mg/dL (8.5-10.1)
[2024-06-25 11:30] LABS: ALBUMIN 3.2 g/dl (3.4-5.0); BLOOD UREA NITROGEN 23.7 mg/dL (7-18)
[2024-06-25 11:33] LABS: CREATININE 1.3 mg/dL (0.55-1.3)
[2024-06-25 11:34] LABS: BILIRUBIN,TOTAL 0.4 mg/dL (0.2-1); TOT PROT 6.9 g/dl (6.4-8.2)
[2024-06-25] MEDS: hydrOXYzine PAMOATE 25 MG CAPSULE (FP) PO PRN (17:59)
[2024-06-25] MEDS: IBUPROFEN 600 MG TABLET (FP) PO PRN (17:59)
[2024-06-26] MEDS: LORazepam 1 MG TABLET PO SCH (06:00)
[2024-06-26 08:50] VITALS: BP 135/64; PULSE 79; RESP 16; TEMP 97.7
[2024-06-27] MEDS ORDERED: LORazepam 0.5 MG TABLET PO PRN
[2024-06-27] MEDS ORDERED: LORazepam 0.5 MG TABLET PO SCH (05:00)
[2024-06-28] MEDS ORDERED: LORazepam 0.5 MG TABLET PO ONE (05:00)
== END 2024-06-26 10:35 | disposition left against medical advice (07) | DRG 770 ==
LOC: YASAS 12:48 → Y6N 14:50
PROVIDERS: ADMIT Allergy & Immunology; ATTEND Allergy & Immunology
PROC: HZ2ZZZZ Detoxification Services for Substance Abuse Treatment (ICD-10-PCS; principal; 2024-06-24)
DX: F11.23 Opioid dependence with withdrawal (principal); F10.230 Alcohol dependence with withdrawal, uncomplicated; F14.20 Cocaine dependence, uncomplicated; F17.210 Nicotine dependence, cigarettes, uncomplicated; F25.9 Schizoaffective disorder, unspecified; B20 Human immunodeficiency virus [HIV] disease; M06.9 Rheumatoid arthritis, unspecified; M54.50 Low back pain, unspecified; G89.29 Other chronic pain; N40.0 Benign prostatic hyperplasia without lower urinary tract symptoms; Z79.899 Other long term (current) drug therapy; Z87.39 Personal history of other diseases of the musculoskeletal system and connective tissue
CPT/HCPCS: 36415; 80053; 80305; 80307; 85027; 86780; 93005; 93010